=== PATIENT | female | born 1985 | race Caucasian/White ===

== ENCOUNTER 2016-12-22 11:39 | Emergency (ER) | payer OTHER ==
[~2016-12-22] VITALS: Ht 165.1 cm; Wt 54.4 kg
--- NOTE | ~2016-12-22 | EKG ---
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
[~2016-12-22 11:39] MED LIST: CLEOCIN HCL300 MG PO; NOHOMEMEDICATIONS
[2016-12-22 12:30] LABS: ABSOLUTE NEUTROPHILS 3.9 thou/uL (1.4-8.2); BASOPHILS 2.2 % (0.0-2.0); HEMATOCRIT 42.5 % (37.0-47.0); LYMPHOCYTES 37.6 % (24.0-44.0); MCH 33.4 pg (26.0-34.0); MCHC 35.3 g/dL (28.0-37.0); MCV 94.5 fL (80.0-100.0); PLATELET COUNT 144 thou/uL (150-400); POLYS 53.2 % (36.0-66.0); RBC 4.49 mil/uL (4.20-5.00); RDW 12.2 % (10.5-14.5); WBC 7.4 thou/uL (4.0-11.0)
[2016-12-22 12:44] LABS: ANION GAP 10 mmol/L (7-16); BUN 12 mg/dL (7-18); CALCIUM 8.9 mg/dL (8.5-10.1); CHLORIDE 104 mmol/L (98-107); CO2 24 mmol/L (21-32); CREATININE 0.6 mg/dL (0.6-1.0); GLUCOSE 80 mg/dL (74-106); POTASSIUM 3.8 mmol/L (3.5-5.1); SODIUM 138 mmol/L (136-145)
[2016-12-22 12:45] LABS: AMP/METHAMP Negative (Negative); BARBITURATES Negative (Negative); BENZODIAZEPINES Negative (Negative); COCAINE Negative (Negative); METHADONE Negative (Negative); OPIATES POSITIVE (Negative); PCP Negative (Negative); THC POSITIVE (Negative)
[2016-12-22 12:46] LABS: MANUAL DIFF NO
[2016-12-22 12:52] LABS: TROPONIN-I < 0.04 ng/mL (<0.04-0.07)
[2016-12-22] MEDS ORDERED: HYDROCODONE-AP1 EAC6 PO (13:14)
[2016-12-22 13:54] VITALS: BP 140/74
== END 2016-12-22 13:54 | disposition home or self-care (01) ==
LOC: ER 11:39
PROVIDERS: Physician Assistant
DX: R00.2 Palpitations (principal); F41.9 Anxiety disorder, unspecified; F12.10 Cannabis abuse, uncomplicated; F17.200 Nicotine dependence, unspecified, uncomplicated; F17.210 Nicotine dependence, cigarettes, uncomplicated; Z88.8 Allergy status to other drugs, medicaments and biological substances

== ENCOUNTER 2017-03-21 15:52 | Emergency (ER) | payer OTHER ==
[~2017-03-21] VITALS: Ht 157.5 cm; Wt 66.2 kg
[~2017-03-21 15:52] MED LIST changes: +HYDROCODONE-AP1 EAC6 PO
[2017-03-21 16:24] LABS: URINE BILIRUBIN NEGATIVE (Negative); URINE BLOOD NEGATIVE (Negative); URINE COLOR YELLOW; URINE GLUCOSE-RANDOM* NEGATIVE (Negative); URINE KETONES NEGATIVE (Negative); URINE NITRITE NEGATIVE (Negative); URINE PROTEIN (DIPSTICK) NEGATIVE (Negative); URINE SPECIFIC GRAVITY <= 1.005 (1.003-1.035); URINE UROBILINOGEN 0.2 E.U./dl (0.2-1.0)
[2017-03-21] MEDS ORDERED: PRILOSEC OTC20 MG PO (16:24)
[2017-03-21] MEDS ORDERED: ZANTAC 150MG T150 MG PO (16:24)
[2017-03-21 16:45] LABS: ABSOLUTE NEUTROPHILS 3.1 thou/uL (1.4-8.2); BASOPHILS 0.6 % (0.0-2.0); EOSINOPHILS 0.4 % (0.0-3.0); HEMATOCRIT 43.1 % (37.0-47.0); HEMOGLOBIN 14.8 gm/dL (12.0-15.0); LYMPHOCYTES 29.3 % (24.0-44.0); MCH 32.5 pg (26.0-34.0); MCHC 34.3 g/dL (28.0-37.0); MCV 94.6 fL (80.0-100.0); MONOCYTES 7.3 % (1.0-8.0); PLATELET COUNT 142 thou/uL (150-400); POLYS 62.4 % (36.0-66.0); RBC 4.56 mil/uL (4.20-5.00); RDW 12.3 % (10.5-14.5)
[2017-03-21 16:46] LABS: ANION GAP 11 mmol/L (7-16); BUN 9 mg/dL (7-18); CALCIUM 9.2 mg/dL (8.5-10.1); CHLORIDE 103 mmol/L (98-107); CO2 26 mmol/L (21-32); CREATININE 0.8 mg/dL (0.6-1.0); GLUCOSE 81 mg/dL (74-106); SODIUM 140 mmol/L (136-145)
[2017-03-21 16:48] LABS: MANUAL DIFF NO
[2017-03-21 16:51] LABS: ALBUMIN 4.1 g/dL (3.4-5.0); ALKALINE PHOSPHATASE 80 U/L (46-116); DIRECT BILIRUBIN < 0.1 mg/dL (<0.1-0.3); SGOT 22 U/L (15-37); SGPT 27 U/L (30-65); TOTAL BILIRUBIN 0.3 mg/dL (<0.1-1.0); TOTAL PROTEIN 7.7 g/dL (6.4-8.2)
[2017-03-21] MEDS ORDERED: VISTARIL 25 MG25 M1 PO (17:11)
[2017-03-21 17:27] VITALS: BP 124/64
== END 2017-03-21 17:28 | disposition home or self-care (01) ==
LOC: ER 15:52
PROVIDERS: Nurse Practitioner
DX: R10.13 Epigastric pain (principal); F41.9 Anxiety disorder, unspecified; K21.9 Gastro-esophageal reflux disease without esophagitis; F17.210 Nicotine dependence, cigarettes, uncomplicated; Z88.8 Allergy status to other drugs, medicaments and biological substances; Z98.890 Other specified postprocedural states

== ENCOUNTER 2017-10-20 14:45 | Emergency (ER) | payer OTHER ==
[~2017-10-20] VITALS: Ht 157.5 cm; Wt 63.5 kg
[~2017-10-20 14:45] MED LIST changes: +PRILOSEC OTC20 MG PO; +VISTARIL 25 MG25 M1 PO; +ZANTAC 150MG T150 MG PO
[2017-10-20] MEDS ORDERED: CLONAZEPAM 1 MG1 M1 PO ×2 (15:03)
[2017-10-20] MEDS ORDERED: BUTALB-APAP-CA1 EACH PO (16:31)
[2017-10-20] MEDS ORDERED: IMITREX 25 MG T25 M1 PO (16:37)
[2017-10-20 16:54] VITALS: BP 109/72
== END 2017-10-20 16:56 | disposition home or self-care (01) ==
LOC: ER 14:45
DX: D32.9 Benign neoplasm of meninges, unspecified (principal); K21.9 Gastro-esophageal reflux disease without esophagitis; Z87.891 Personal history of nicotine dependence; Z88.5 Allergy status to narcotic agent; Z88.8 Allergy status to other drugs, medicaments and biological substances

== ENCOUNTER 2017-11-24 14:46 | Emergency (ER) | payer OTHER ==
[~2017-11-24] VITALS: Ht 165.1 cm; Wt 59.0 kg
[~2017-11-24 14:46] MED LIST changes: +BUTALB-APAP-CA1 EACH PO; +CLONAZEPAM 1 MG1 M1 PO; +IMITREX 25 MG T25 M1 PO
[2017-11-24] MEDS ORDERED: ZANTAC 150MG T150 MG PO (15:16)
[2017-11-24 15:30] LABS: ABSOLUTE NEUTROPHILS 5.1 thou/uL (1.4-8.2); BASOPHILS 0.4 % (0.0-2.0); EOSINOPHILS 0.5 % (0.0-3.0); HEMATOCRIT 41.7 % (37.0-47.0); HEMOGLOBIN 14.4 gm/dL (12.0-15.0); LYMPHOCYTES 20.2 % (24.0-44.0); MCH 32.8 pg (26.0-34.0); MCHC 34.6 g/dL (28.0-37.0); MCV 94.8 fL (80.0-100.0); MONOCYTES 7.4 % (1.0-8.0); PLATELET COUNT 147 thou/uL (150-400); POLYS 71.5 % (36.0-66.0); RDW 12.5 % (10.5-14.5); WBC 7.1 thou/uL (4.0-11.0)
[2017-11-24 15:34] LABS: URINE BILIRUBIN NEGATIVE (Negative); URINE BLOOD NEGATIVE (Negative); URINE CLARITY CLEAR; URINE COLOR YELLOW; URINE GLUCOSE-RANDOM* NEGATIVE (Negative); URINE KETONES NEGATIVE (Negative); URINE LEUKOCYTES-REFLEX NEGATIVE (Negative); URINE NITRITE-REFLEX NEGATIVE (Negative); URINE PROTEIN (DIPSTICK) NEGATIVE (Negative); URINE SPECIFIC GRAVITY 1.015 (1.005-1.035); URINE UROBILINOGEN 0.2 E.U./dl (0.2-1.0)
[2017-11-24 15:37] LABS: CALCIUM 9.1 mg/dL (8.5-10.1); CREATININE 0.9 mg/dL (0.6-1.0); POTASSIUM 3.8 mmol/L (3.5-5.1)
[2017-11-24 15:43] LABS: ALBUMIN 4.2 g/dL (3.4-5.0); DIRECT BILIRUBIN 0.2 mg/dL (<0.1-0.3); TOTAL BILIRUBIN 0.6 mg/dL (<0.1-1.0); TOTAL PROTEIN 7.8 g/dL (6.4-8.2)
[2017-11-24] MEDS ORDERED: HYDROCODONE-AP1 EAC6 PO (16:33)
[2017-11-24] MEDS ORDERED: REGLAN 10 MG TA10 MG PO (16:33)
[2017-11-24 16:45] VITALS: BP 123/84
[2017-11-25] MEDS ORDERED: REGLAN 10 MG TA10 MG PO (12:25)
[2017-11-25] MEDS ORDERED: LEVSIN0.125 MG PO (12:25)
== END 2017-11-24 16:49 | disposition home or self-care (01) ==
LOC: ER 14:46
PROVIDERS: Physician Assistant
DX: R10.13 Epigastric pain (principal); R11.2 Nausea with vomiting, unspecified; F12.10 Cannabis abuse, uncomplicated; K21.9 Gastro-esophageal reflux disease without esophagitis; Z87.891 Personal history of nicotine dependence; Z88.5 Allergy status to narcotic agent

== ENCOUNTER 2017-11-25 09:43 | Emergency (ER) | payer OTHER ==
[~2017-11-25] VITALS: Ht 157.5 cm; Wt 62.6 kg
[~2017-11-25 09:43] MED LIST changes: +REGLAN 10 MG TA10 MG PO
[2017-11-25 10:36] LABS: ABSOLUTE NEUTROPHILS 11.1 thou/uL (1.4-8.2); BASOPHILS 0.3 % (0.0-2.0); HEMATOCRIT 42.9 % (37.0-47.0); HEMOGLOBIN 14.7 gm/dL (12.0-15.0); LYMPHOCYTES 7.2 % (24.0-44.0); MCH 32.4 pg (26.0-34.0); MCHC 34.2 g/dL (28.0-37.0); MCV 94.8 fL (80.0-100.0); MONOCYTES 4.1 % (1.0-8.0); PLATELET COUNT 138 thou/uL (150-400); POLYS 88.4 % (36.0-66.0); RBC 4.52 mil/uL (4.20-5.00); RDW 12.1 % (10.5-14.5); WBC 12.5 thou/uL (4.0-11.0)
[2017-11-25 10:42] LABS: URINE BILIRUBIN NEGATIVE (Negative); URINE BLOOD NEGATIVE (Negative); URINE CLARITY CLEAR; URINE COLOR YELLOW; URINE GLUCOSE-RANDOM* NEGATIVE (Negative); URINE KETONES 2+ (Negative); URINE LEUKOCYTES NEGATIVE (Negative); URINE NITRITE NEGATIVE (Negative); URINE PROTEIN (DIPSTICK) NEGATIVE (Negative); URINE UROBILINOGEN 0.2 E.U./dl (0.2-1.0)
[2017-11-25 10:46] LABS: CALCIUM 9.1 mg/dL (8.5-10.1); CREATININE 0.9 mg/dL (0.6-1.0); POTASSIUM 3.8 mmol/L (3.5-5.1)
[2017-11-25 10:52] LABS: ALBUMIN 4.3 g/dL (3.4-5.0); TOTAL BILIRUBIN 0.7 mg/dL (<0.1-1.0); TOTAL PROTEIN 7.9 g/dL (6.4-8.2)
[2017-11-25] MEDS ORDERED: LEVSIN0.125 MG PO (12:25)
[2017-11-25] MEDS ORDERED: REGLAN 10 MG TA10 MG PO (12:25)
[2017-11-25 12:51] VITALS: BP 121/72
== END 2017-11-25 12:50 | disposition home or self-care (01) ==
LOC: ER 09:43
PROVIDERS: Physician Assistant
DX: K29.00 Acute gastritis without bleeding (principal); E86.0 Dehydration; K21.9 Gastro-esophageal reflux disease without esophagitis; Z88.5 Allergy status to narcotic agent

== ENCOUNTER 2017-12-15 11:19 | Emergency (ER) | payer OTHER ==
[~2017-12-15] VITALS: Ht 157.5 cm; Wt 60.1 kg
--- NOTE | ~2017-12-15 | EKG ---
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 : 1985 Requested By: Sharla Almeida Order Number: [id number] MD: Aramis Bueno Measurements Intervals [place] Rate: 60 P: 65 [place]: 159 QRS: 15 QRSD: 100 T: 32 QT: 423 QTc: 423 Interpretive Statements Sinus rhythm RSR' in V1 or V2, right VCD Compared to ECG 12/22/2016 12:54:37 no significant change was found Electronically Signed On 12-15-2017 16:29:23 CDT by Aramis Bueno [email or web address] <ELECTRONICALLY SIGNED> By: Aramis Bueon MD, [facility] 12/15/17 1629 1240 39 Aramis Bueno MD, [facility] /EPI
[~2017-12-15 11:19] MED LIST changes: +LEVSIN0.125 MG PO
[2017-12-15 12:48] LABS: ABSOLUTE NEUTROPHILS 2.8 thou/uL (1.4-8.2); BASOPHILS 0.6 % (0.0-2.0); EOSINOPHILS 0.8 % (0.0-3.0); HEMATOCRIT 40.9 % (37.0-47.0); HEMOGLOBIN 14.1 gm/dL (12.0-15.0); LYMPHOCYTES 33.3 % (24.0-44.0); MCH 32.6 pg (26.0-34.0); MCHC 34.4 g/dL (28.0-37.0); MCV 94.8 fL (80.0-100.0); MONOCYTES 8.4 % (1.0-8.0); POLYS 56.9 % (36.0-66.0); RBC 4.31 mil/uL (4.20-5.00); RDW 13.2 % (10.5-14.5)
[2017-12-15 13:05] LABS: CALCIUM 9.1 mg/dL (8.5-10.1); CREATININE 0.7 mg/dL (0.6-1.0); POTASSIUM 4.1 mmol/L (3.5-5.1)
[2017-12-15 13:11] LABS: ALBUMIN 3.8 g/dL (3.4-5.0); DIRECT BILIRUBIN 0.1 mg/dL (<0.1-0.3); MAGNESIUM 2.2 mg/dL (1.8-2.4); TOTAL BILIRUBIN 0.6 mg/dL (<0.1-1.0); TOTAL PROTEIN 7.1 g/dL (6.4-8.2)
[2017-12-15 13:44] LABS: PLATELET COUNT 119 thou/uL (150-400)
[2017-12-15 14:00] LABS: URINE BILIRUBIN NEGATIVE (Negative); URINE BLOOD NEGATIVE (Negative); URINE CLARITY CLEAR; URINE COLOR YELLOW; URINE GLUCOSE-RANDOM* NEGATIVE (Negative); URINE KETONES NEGATIVE (Negative); URINE LEUKOCYTES-REFLEX NEGATIVE (Negative); URINE NITRITE-REFLEX NEGATIVE (Negative); URINE PROTEIN (DIPSTICK) NEGATIVE (Negative); URINE SPECIFIC GRAVITY 1.015 (1.005-1.035); URINE UROBILINOGEN 0.2 E.U./dl (0.2-1.0)
[2017-12-15 14:51] VITALS: BP 118/73
== END 2017-12-15 14:52 | disposition home or self-care (01) ==
LOC: ER 11:19
PROVIDERS: Emergency Medicine
DX: R00.2 Palpitations (principal); R53.1 Weakness; K21.9 Gastro-esophageal reflux disease without esophagitis; R06.02 Shortness of breath; Z87.891 Personal history of nicotine dependence; Z88.5 Allergy status to narcotic agent; Z88.8 Allergy status to other drugs, medicaments and biological substances